=== PATIENT | male | born 1945 | race Caucasian/White ===

== ENCOUNTER → 2018-08-16 13:37 | Outpatient (CLI) | payer OTHER, SELFPAY ==
--- NOTE | 2018-08-16 | DI.ECHO.S_ITS ---
[facility] +---------+ : : [address] : [place] [address] : : : : [id number] : : : : Phone: [phone]---------+ Echocardiogram Report + + :Name: TEE GRECO Study Date: 08/16/2018 Height: 68 in : :[facility] Exam Location: [place] Weight: 190 lb : : Gender: Male BSA: 2.0 m2 : :: 1945 Age: 73 yrs BP: 140/70 mmHg: :Reason For Study: Arrhythmia : : Performed By: Maria De Jesus Page : :Referring: JARET CONCEPCION : + + Interpretation Summary The ejection fraction is estimated to be 60-65%. There is a pacemaker lead in the right ventricle. The aortic valve is moderately calcified. There is moderate aortic stenosis. The peak aortic velocity is 3.1 m/sec. The right ventricular systolic pressure is estimated to be at least 22 mmHg based on an estimated right atrial pressure of 3 mm Hg. The ascending aorta is mildly enlarged. Procedure: A two-dimensional transthoracic echocardiogram with color flow and Doppler was performed. The study quality was technically adequate. There is no prior echocardiogram noted for this patient. The patient was in normal sinus rhythm during the exam. Left Ventricle: The left ventricle is normal in size, wall thickness, and systolic function without any focal wall motion abnormalities. Proximal septal thickening is noted. The ejection fraction is estimated to be 60-65%. Left ventricular wall motion is normal. Right Ventricle: The right ventricle is normal in size and function. There is a pacemaker lead in the right ventricle. Atria: The left atrium is mildly dilated. Right atrial size is normal. There is no Doppler evidence for an interatrial shunt. Mitral Valve: The mitral valve leaflets appear mildly thickened, but open well. There is mild mitral annular calcification. There is trace mitral regurgitation. Aortic Valve: The aortic valve is not well visualized. The aortic valve is moderately calcified. The peak aortic velocity is 3.1 m/sec. The calculated aortic valve area is 1.3 cm2. The aortic valve mean gradient is 22.4. mmHg. There is moderate aortic stenosis. There is trace aortic regurgitation. Tricuspid Valve: The tricuspid valve is normal in structure and function. There is trace tricuspid regurgitation. The right ventricular systolic pressure is estimated to be at least 22 mmHg based on an estimated right atrial pressure of 3 mm Hg. Pulmonic Valve: The pulmonic valve is not well visualized. There is trace pulmonic regurgitation. Great Vessels: The aortic root is normal size. The ascending aorta is mildly enlarged. The pulmonary artery is not well visualized, but is probably normal size. The IVC is of normal diameter and collapses greater than 50% with a sniff. This suggests a low right atrial pressure of 3 mm Hg. Pericardium/ Pleura There is no pericardial effusion. There is no pleural effusion. MMode/2D Measurements & Calculations LVIDd: 5.2 cm LVOT diam: 2.6 cm LVIDs: 3.2 cm Ao root diam: 3.8 cm FS: 38.4 % asc Aorta Diam: 4.0 cm EPSS: 0.45 cm IVSd: 0.99 cm LVPWd: 1.1 cm LV france. diameter/BSA (cm/m^2): 2.6 LV sys. diameter/BSA (cm/m^2): 1.6 LA A2 area: 24.7 cm2 RA long axis: 4.8 cm LA A4 area: 23.0 cm2 RA area: 12.6 cm2 LA length (vol): 6.2 cm RA vol: 28.2 ml LA vol: 77.8 ml RA : 14.1 ml/m2 LA vol index: 38.9 ml/m2 IVC diam: 1.9 cm RVD1 (basal): 4.1 cm Doppler Measurements & Calculations Ao V2 max: 312.2 cm/sec LVOT Max Frandy: 79.5 cm/sec Ao V2 mean: 225.9 cm/sec LV V1 max P.5 mmHg Ao max P.0 mmHg LV V1 VTI: 18.0 cm Ao mean P.4 mmHg BAN(I,D): 1.3 cm2 Ao V2 VTI: 72.7 cm BAN(V,D): 1.4 cm2 sev ratio: 0.25 BAN indexed to BSA (cm^2/m^2): 0.67 MV E max frandy: 65.6 cm/sec TR max frandy: 218.7 cm/sec MV A max frandy: 101.5 cm/sec TR max P.2 mmHg MV E/A: 0.65 PA V2 max: 67.3 cm/sec Med Peak E' Frandy: 5.5 cm/sec PA V2 mean: 44.0 cm/sec E/E' med: 12.0 PA mean P.86 mmHg Lat Peak E' Frandy: 4.0 cm/sec PA Accel Time: 0.13 sec E/E' lat: 16.3 E/e' average: 14.1 MV dec time: 0.21 sec MV P1/2t: 61.3 msec MV 2t max frandy: 65.9 cm/sec SV(LVOT): 97.8 ml MVA(2t): 3.6 cm2 Reading Physician:04:43 PM
== END ==
PROVIDERS: PCP Family Medicine; Visit Provider Personal Emergency Response Attendant
DX: I35.0 Nonrheumatic aortic (valve) stenosis (principal); I49.9 Cardiac arrhythmia, unspecified; I77.89 Other specified disorders of arteries and arterioles; Z95.0 Presence of cardiac pacemaker
CPT/HCPCS: 93306